=== PATIENT | female | born 1990 | race Caucasian/White ===

== ENCOUNTER 2017-11-22 02:57 | Observation (INO) | payer BC, OTHER ==
[2017-11-22] MEDS: morphine 4 MG/ML VIAL IV ×2 (03:51→08:58)
[2017-11-22] MEDS: ONDANSETRON 4 MG INJ IV ×2 (03:51→05:47)
[2017-11-22] MEDS: METOCLOPRAMIDE 10 MG INJ IV ×2 (03:51→11:34)
[2017-11-22] MEDS: SOD CHLORIDE 0.9% 1,000 ML IV ×2 (03:52→08:58)
[2017-11-22 05:09] LABS: ADD MAN DIFF? NO
[2017-11-22 05:19] LABS: WHITE BLOOD COUNT 5.3 10^3/ul (4.8-10.8)
[2017-11-22 05:19] LABS: BASOPHILS % 0.4 % (0.0-2.0); EOSINOPHILS % 0.4 % (0.0-7.0); HEMATOCRIT 38.6 % (37.0-47.0); HEMOGLOBIN 12.5 g/dl (12.0-16.0); LYMPHOCYTES # 1.8 10^3/ul (0.8-2.9); LYMPHOCYTES % 34.5 % (15.0-51.0); MEAN CORPUSCULAR HEMOGLOBIN 27.5 pg (29.0-33.0); MEAN CORPUSCULAR HGB CONC 32.4 g/dl (32.0-37.0); MEAN CORPUSCULAR VOLUME 84.8 fl (82.0-101.0); MEAN PLATELET VOLUME 11.8 fl (7.4-10.4); MONOCYTE # 0.5 10^3/ul (0.3-0.9); MONOCYTES % 9.6 % (0.0-11.0); NEUTROPHIL # 2.9 10^3/ul (1.6-7.5); NEUTROPHILS % 54.9 % (39.0-77.0); PLATELET COUNT 276 10^3/UL (140-415); RED BLOOD COUNT 4.55 10^6/ul (4.20-5.40); RED CELL DISTRIBUTION WIDTH 13.6 % (11.5-14.5)
[2017-11-22 05:30] LABS: ALANINE AMINOTRANSFERASE 29 IU/L (13-69); ALBUMIN 4.7 g/dl (3.3-4.9); ALBUMIN/GLOBULIN RATIO 1.34; ALKALINE PHOSPHATASE 82 IU/L (42-121); ANION GAP 19 (8-16); ASPARTATE AMINO TRANSFERASE 22 IU/L (15-46); BILIRUBIN,INDIRECT 0.2 mg/dl (0-1.1); BILIRUBIN,TOTAL 0.2 mg/dl (0.2-1.3); BLOOD UREA NITROGEN 11 mg/dl (7-20); CALCIUM 9.7 mg/dl (8.4-10.2); CARBON DIOXIDE 25 mmol/L (21-31); CHLORIDE 104 mmol/L (97-110); CREATININE 0.72 mg/dl (0.44-1.00); GLUCOSE 118 mg/dl (70-220); LIPASE 81 U/L (23-300); POTASSIUM 3.3 mmol/L (3.5-5.1); SODIUM 145 mmol/L (135-144); TOTAL PROTEIN 8.2 g/dl (6.1-8.1)
[2017-11-22] MEDS: HYDROmorphONE 1 MG/ML SYG IV (05:47)
[2017-11-22] MEDS: DIPHENHYDRAMINE 50 MG INJ IV (08:58)
[2017-11-22] MEDS ORDERED: ACETAMINOPHEN 325 MG TAB PO (09:00)
[2017-11-22] MEDS ORDERED: ONDANSETRON 4 MG INJ IV ×2 (09:00→11:00)
[2017-11-22] MEDS: PROCHLORPERAZINE 10 MG INJ IM (09:12)
[2017-11-22] MEDS: DOCUSATE SODIUM 100 MG CAP PO (11:00)
[2017-11-22] MEDS: DEXTROSE 5%-0.45% NACL 1,000 ML IV (11:34)
[2017-11-22] MEDS: POTASSIUM CHLORIDE 20 MEQ POWDER FOR ORAL SOLN PO (11:34)
[2017-11-22] MEDS: FAMOTIDINE 20 MG INJ IV (11:34)
== END 2017-11-22 14:05 | disposition left against medical advice (07) ==
LOC: E/R 02:57 → PP2 08:48
DX: R11.2 Nausea with vomiting, unspecified (principal); R10.13 Epigastric pain
CPT/HCPCS: 36415; 74176; 80053; 83690; 85025; 96372; 96374; 96375; 96376; 99217; 99285-25

== ENCOUNTER 2018-11-21 10:46 | Emergency (ER) | payer BC ==
[2018-11-21] MEDS: ONDANSETRON (ODT) 4 MG TAB ODT (11:11)
[2018-11-21 11:36] LABS: URINE PH (Dip) POC 6.5 (5.0-8.5)
[2018-11-21 11:36] LABS: URINE BLOOD (Dip) POC 2+ (NEGATIVE); URINE GLUCOSE (Dip) POC Negative (NEGATIVE); URINE KETONES (Dip) POC 4+ (NEGATIVE); URINE LEUKOCYTE EST (Dip) POC Negative (NEGATIVE); URINE NITRITE (Dip) POC Negative (NEGATIVE); URINE TOTAL PROTEIN POC 1+ (NEGATIVE)
[2018-11-21] MEDS: LORAZEPAM 0.5 MG TAB PO (12:14)
== END 2018-11-21 12:45 | disposition home or self-care (01) ==
LOC: FTE 10:46
DX: F41.9 Anxiety disorder, unspecified (principal); R40.2412 Glasgow coma scale score 13-15, at arrival to emergency department
CPT/HCPCS: 81003; 81025; 99283